=== PATIENT | female | born 1955 | race Caucasian/White ===

== ENCOUNTER 2018-10-28 14:18 | Outpatient (CLI) | payer MEDICARE | END 2018-10-28 23:59 | disposition home or self-care (01) | LOC: WOUND 14:18 | PROVIDERS: ATTEND Family Medicine | DX: E11.622 Type 2 diabetes mellitus with other skin ulcer (principal); L98.495 Non-pressure chronic ulcer of skin of other sites with muscle involvement without evidence of necrosis; L89.309 Pressure ulcer of unspecified buttock, unspecified stage; E11.40 Type 2 diabetes mellitus with diabetic neuropathy, unspecified; I10 Essential (primary) hypertension; E66.01 Morbid (severe) obesity due to excess calories; M19.90 Unspecified osteoarthritis, unspecified site; J44.9 Chronic obstructive pulmonary disease, unspecified; G47.33 Obstructive sleep apnea (adult) (pediatric); M81.0 Age-related osteoporosis without current pathological fracture; Z79.4 Long term (current) use of insulin | CPT/HCPCS: G0463 ==

== ENCOUNTER 2018-11-04 13:22 | Outpatient (CLI) | payer MEDICARE | END 2018-11-04 23:59 | disposition home or self-care (01) | LOC: WOUND 13:22 | PROVIDERS: ATTEND Family Medicine | DX: E11.622 Type 2 diabetes mellitus with other skin ulcer (principal); L98.495 Non-pressure chronic ulcer of skin of other sites with muscle involvement without evidence of necrosis; L89.309 Pressure ulcer of unspecified buttock, unspecified stage; E11.40 Type 2 diabetes mellitus with diabetic neuropathy, unspecified; I10 Essential (primary) hypertension; E66.01 Morbid (severe) obesity due to excess calories; M19.90 Unspecified osteoarthritis, unspecified site; J44.9 Chronic obstructive pulmonary disease, unspecified; G47.33 Obstructive sleep apnea (adult) (pediatric); M81.0 Age-related osteoporosis without current pathological fracture; Z79.4 Long term (current) use of insulin | CPT/HCPCS: G0463 ==

== ENCOUNTER 2019-01-25 12:39 | Inpatient (IN) | payer MEDICARE ==
[2019-01-23 14:53] LABS: BASOPHILS # (AUTO) 0.05 x10^3/uL (0-0.1); BASOPHILS % (AUTO) 1 % (0-1); EOSINOPHILS # (AUTO) 0.43 x10^3/uL (0-0.4); EOSINOPHILS % (AUTO) 4 % (1-7); LYMPHOCYTES # (AUTO) 1.41 x10^3/uL (1-3.4); LYMPHOCYTES % (AUTO) 14 % (22-44); MD NO; MEAN CORPUSCULAR HGB CONC 31.2 g/dL (32.4-35.8); MEAN CORPUSCULAR VOLUME 70.7 fL (80-100); MEAN PLATELET VOLUME 6.9 fL (7.4-10.4); MONOCYTES # (AUTO) 0.82 x10^3/uL (0.2-0.8); MONOCYTES % (AUTO) 8 % (2-9); NEUTROPHILS # (AUTO) 7.21 x10^3/uL (1.8-6.8); NEUTROPHILS % (AUTO) 73 % (42-75); PLATELET COUNT 337 x10^3/uL (130-400)
[2019-01-23 15:05] LABS: ALANINE AMINOTRANSFERASE 93 U/L (12-78); ALBUMIN 2.6 g/dL (3.4-5.0); ANION GAP 6 mmol/L (5-15); CALCIUM 9.4 mg/dL (8.5-10.1); CHLORIDE 110 mmol/L (98-107)
[2019-01-23 15:08] LABS: ALKALINE PHOSPHATASE 274 U/L (45-117); BILIRUBIN,TOTAL 0.3 mg/dL (0.2-1.0); TOTAL PROTEIN 8.3 g/dL (6.4-8.2)
[2019-01-23 16:27] LABS: CULTURE INDICATED? YES; MICROSCOPIC INDICATED
[~2019-01-25] VITALS: Ht 157.5 cm; Wt 100.0 kg
[~2019-01-25 12:39] MED LIST: EPINEPHRINE 1 MG/ML, 1ML ONE; GLYB5TAB3 PO; LIDOCAINE 1%, 20ML ONE; METF500T17 PO; Oxygen INH; [UNRECOGNIZED DRUG - REMARK]
[2019-01-25] MEDS ORDERED: METOPROLOL PO (13:16)
[2019-01-25] MEDS ORDERED: LACTATED RINGERS 1,000 ML IV SCH (13:25)
[2019-01-25] MEDS ORDERED: SITA100T PO (13:26)
[2019-01-25] MEDS ORDERED: ACIDOPHILUS PO (13:26)
[2019-01-25] MEDS ORDERED: TRAZ50TA66 PO (13:26)
[2019-01-25] MEDS ORDERED: GLIM4TAB4 PO (13:26)
[2019-01-25] MEDS ORDERED: DICL75TA3 PO (13:26)
[2019-01-25] MEDS ORDERED: LISI30TA4 PO (13:26)
[2019-01-25] MEDS ORDERED: HYDR25TA6 PO (13:26)
[2019-01-25] MEDS ORDERED: INSU100V13 SQ (13:26)
[2019-01-25] MEDS ORDERED: OXYB5TAB10 PO (13:26)
[2019-01-25] MEDS ORDERED: VITAMIN D3 PO (13:26)
[2019-01-25] MEDS ORDERED: CALCIUM PO (13:26)
[2019-01-25] MEDS ORDERED: FENTANYL PF 250 MCG/5ML ONE ×3 (13:27→16:06)
[2019-01-25] MEDS ORDERED: GABAPENTIN 300 MG CAPSULE PO ONE (13:30)
[2019-01-25] MEDS ORDERED: ACETAMINOPHEN 500 MG TABLET PO ONE (13:30)
[2019-01-25] MEDS ORDERED: MINERAL OIL 10 ML VIAL MC ONE (13:51)
[2019-01-25] MEDS ORDERED: HYDROmorphone 2 MG/ML, 1ML IVPush PRN (14:00)
[2019-01-25] MEDS ORDERED: OXYcodone 5 MG/5 ML ORAL.SOL UDC PO PRN (14:00)
[2019-01-25] MEDS ORDERED: DEXTROSE 50%, 50ML SYRINGE IVPush ONE (14:00)
[2019-01-25] MEDS ORDERED: hydrALAzine 20 MG/ML, 1ML IV PRN (14:00)
[2019-01-25] MEDS ORDERED: MORPHINE SULFATE 4 MG/ML, 1ML IVPush PRN (14:00)
[2019-01-25] MEDS ORDERED: HALOPERIDOL 5 MG/ML IV PRN (14:00)
[2019-01-25] MEDS ORDERED: MEPERIDINE/PF 25MG/ML,1ML IVPush PRN (14:00)
[2019-01-25] MEDS ORDERED: PROMETHAZINE 25 MG/ML, 1ML IV PRN (14:00)
[2019-01-25] MEDS ORDERED: LABETALOL 5MG/ML, 20ML IV PRN (14:00)
[2019-01-25] MEDS ORDERED: FENTANYL PF 100 MCG/2ML IV PRN (14:00)
[2019-01-25] MEDS ORDERED: BUPIVACAINE/PF 0.25% ONE (14:23)
[2019-01-25] MEDS ORDERED: PHENYLEPHRINE 10 MG/ML ONE (14:39)
[2019-01-25] MEDS ORDERED: GLYCOPYRROLATE 0.2MG/1ML, 5ML ONE (14:50)
[2019-01-25] MEDS ORDERED: DEXAMETHASONE 4 MG/ML, 1ML ONE (14:50)
[2019-01-25] MEDS ORDERED: CEFAZOLIN 1,000 MG ONE ×3 (14:50→17:35)
[2019-01-25] MEDS ORDERED: ONDANSETRON 2MG/ML, 2ML ONE (14:50)
[2019-01-25] MEDS ORDERED: ROCURONIUM 10MG/ML,5ML ONE (14:50)
[2019-01-25] MEDS ORDERED: PROPOFOL 10 MG/ML, 20ML ONE (14:50)
[2019-01-25] MEDS ORDERED: NEOSTIGMINE 1 MG/ML, 10ML ONE (14:50)
[2019-01-25] MEDS ORDERED: BACITRACIN 50,000 UNIT ONE (16:35)
[2019-01-25] MEDS ORDERED: OXYcodone 5 MG/5 ML ORAL.SOL UDC ONE (19:39)
[2019-01-25] MEDS ORDERED: FENTANYL PF 100 MCG/2ML ONE (19:39)
[2019-01-25] MEDS ORDERED: BISACODYL 10 MG SUPP PR PRN (20:30)
[2019-01-25] MEDS ORDERED: ONDANSETRON 2MG/ML, 2ML IVPush PRN (20:30)
[2019-01-25] MEDS ORDERED: hydrALAzine 20 MG/ML, 1ML IVPush PRN (20:30)
[2019-01-25] MEDS ORDERED: morphine SULFATE 10 MG/ML, 1ML IVPush PRN (20:30)
[2019-01-25] MEDS ORDERED: DOCUSATE 100 MG CAPSULE PO PRN (20:30)
[2019-01-25] MEDS ORDERED: ONDANSETRON ODT 4 MG PO PRN (20:30)
[2019-01-25] MEDS ORDERED: PROMETHAZINE 25 MG/ML, 1ML IM PRN (20:30)
[2019-01-25] MEDS ORDERED: POLYETHYLENE GLYCOL 17 GM PACKET PO PRN (20:30)
[2019-01-25] MEDS ORDERED: INSULIN DETEMIR 25 UNIT SQ SCH (21:00)
[2019-01-25] MEDS ORDERED: metFORMIN 500 MG TABLET PO SCH (21:00)
[2019-01-25] MEDS: TRAZODONE 50MG TABLET PO SCH (21:00)
[2019-01-25] MEDS: METOPROLOL TARTRATE 50 MG TABLET PO SCH (21:00)
[2019-01-25] MEDS: INSULIN GLARGINE 100 UNITS/ML, PEN SQ-INSULIN SCH (21:00)
[2019-01-25] MEDS: DICLOFENAC SODIUM 75 MG TABLET.DR PO SCH (21:00)
[2019-01-25 21:43] LABS: BASOPHILS # (AUTO) 0.01 x10^3/uL (0-0.1); BASOPHILS % (AUTO) 0 % (0-1); EOSINOPHILS # (AUTO) 0.11 x10^3/uL (0-0.4); EOSINOPHILS % (AUTO) 1 % (1-7); LYMPHOCYTES # (AUTO) 0.68 x10^3/uL (1-3.4); LYMPHOCYTES % (AUTO) 4 % (22-44); MD NO; MEAN CORPUSCULAR HGB CONC 30.7 g/dL (32.4-35.8); MEAN CORPUSCULAR VOLUME 71.6 fL (80-100); MEAN PLATELET VOLUME 7.8 fL (7.4-10.4); MONOCYTES % (AUTO) 1 % (2-9); NEUTROPHILS # (AUTO) 16.76 x10^3/uL (1.8-6.8); NEUTROPHILS % (AUTO) 94 % (42-75); PLATELET COUNT 347 x10^3/uL (130-400); RED BLOOD COUNT 3.32 x10^6/uL (3.82-5.3); RED CELL DISTRIBUTION WIDTH 19.3 % (9.6-15.2)
[2019-01-25 22:05] LABS: HEMOGLOBIN A1C 5.4 % (4.2-6.3)
[2019-01-25 23:19] LABS: ALBUMIN 1.9 g/dL (3.4-5.0); ANION GAP 7 mmol/L (5-15); CALCIUM 8.2 mg/dL (8.5-10.1); CHLORIDE 109 mmol/L (98-107)
[2019-01-25 23:29] LABS: % IRON SATURATION 8 % (20-55); ALANINE AMINOTRANSFERASE 45 U/L (12-78); ALKALINE PHOSPHATASE 172 U/L (45-117); BILIRUBIN,TOTAL 0.4 mg/dL (0.2-1.0); CREATININE 1.97 mg/dL (0.55-1.02); FREE T4 (FREE THYROXINE) 0.93 ng/dL (0.76-1.46); IRON LEVEL 19 mcg/dL (50-170); TOTAL IRON BINDING CAPACITY 224 mcg/dL (250-450); TOTAL PROTEIN 6.3 g/dL (6.4-8.2); TRANSFERRIN 159 mg/dL (200-360)
[2019-01-25] MEDS: OXYBUTYNIN CHLORIDE 5 MG TABLET PO SCH (23:35)
[2019-01-25] MEDS: OXYcodone IR 5MG TABLET PO PRN (23:36)
[2019-01-26] VITALS (13 sets, daily range): BP systolic 81–125; BP diastolic 45–76
[2019-01-26] MEDS ORDERED: SODIUM POLYSTYRENE SULFONATE ORAL SUSP PO ONE ×2 (00:30→01:00)
[2019-01-26] MEDS ORDERED: INSULIN LISPRO 100 UNITS/ML, PEN SQ-INSULIN ONE (01:00)
[2019-01-26] MEDS ORDERED: DEXTROSE 50%, 50ML SYRINGE IVPush ONE (01:00)
[2019-01-26] MEDS: SODIUM CHLORIDE 0.9% 1,000 ML IV SCH ×2 (01:10→20:58)
[2019-01-26 02:40] LABS: MEAN CORPUSCULAR HEMOGLOBIN 21.5 pg (27.0-34.8); MEAN CORPUSCULAR HGB CONC 30.5 g/dL (32.4-35.8); MEAN CORPUSCULAR VOLUME 70.7 fL (80-100); MEAN PLATELET VOLUME 7.4 fL (7.4-10.4); PLATELET COUNT 274 x10^3/uL (130-400); RED BLOOD COUNT 3.03 x10^6/uL (3.82-5.3)
[2019-01-26 02:45] LABS: ALBUMIN 1.9 g/dL (3.4-5.0); ANION GAP 5 mmol/L (5-15); CALCIUM 8.1 mg/dL (8.5-10.1); CHLORIDE 108 mmol/L (98-107)
[2019-01-26 02:48] LABS: ALANINE AMINOTRANSFERASE 43 U/L (12-78); ALKALINE PHOSPHATASE 168 U/L (45-117); BILIRUBIN,TOTAL 0.3 mg/dL (0.2-1.0); CHOL/HDL RATIO 3.8; CHOLESTEROL, TOTAL 109 mg/dL (140-239); CREATININE 2.11 mg/dL (0.55-1.02); HDL CHOL % 27 % (28-40); HDL CHOLESTEROL (DIRECT) 29 mg/dL (40-60); LDL CHOLESTEROL,CALCULATED 66 mg/dL (54-169); LDL/HDL RATIO 2.3 (0.5-3.0); TOTAL PROTEIN 6.3 g/dL (6.4-8.2); TRIGLYCERIDES 72 mg/dL (50-200); VLDL CHOLESTEROL 14 mg/dL (0-25)
[2019-01-26 03:08] LABS: BASOPHILS % (AUTO) 0 % (0-1); EOSINOPHILS % (AUTO) 0 % (1-7); LYMPHOCYTES # (AUTO) 0.68 x10^3/uL (1-3.4); LYMPHOCYTES % (AUTO) 4 % (22-44); MD SCAN; MONOCYTES % (AUTO) 3 % (2-9); NEUTROPHILS # (AUTO) 14.84 x10^3/uL (1.8-6.8); NEUTROPHILS % (AUTO) 93 % (42-75)
[2019-01-26] MEDS ORDERED: LISINOPRIL 10 MG TABLET PO SCH (09:00)
[2019-01-26] MEDS: CHOLECALCIFEROL 1,000 UNIT TABLET PO SCH (09:27)
[2019-01-26] MEDS: CALCIUM CARBONATE 500 MG TAB.CHEW PO SCH (09:28)
[2019-01-26] MEDS: GLIMEPIRIDE 4 MG TABLET PO SCH (09:28)
[2019-01-26] MEDS: HYDROCHLOROTHIAZIDE 25 MG TABLET PO SCH (09:28)
[2019-01-26] MEDS: METOPROLOL TARTRATE 50 MG TABLET PO SCH ×2 (09:28→20:58)
[2019-01-26] MEDS: DICLOFENAC SODIUM 75 MG TABLET.DR PO SCH ×2 (09:28→20:57)
[2019-01-26] MEDS: LINAGLIPTIN 5 MG TAB PO SCH (09:28)
[2019-01-26] MEDS: OXYBUTYNIN CHLORIDE 5 MG TABLET PO SCH ×2 (09:29→20:58)
[2019-01-26] MEDS: OXYcodone IR 5MG TABLET PO PRN (09:37)
[2019-01-26] MEDS: INSULIN LISPRO 100 UNITS/ML, PEN SQ-INSULIN SCH ×4 (09:57→21:15)
[2019-01-26] MEDS ORDERED: AMPICILLIN/SULBACTAM 3 GM in SODIUM CHLORIDE 0.9% 100 ML IV SCH (10:00)
[2019-01-26] MEDS ORDERED: VANCOMYCIN PER PHARMACY MC PRN (10:00)
[2019-01-26] MEDS ORDERED: PHARMACY INSTRUCTION MC SCH (10:00)
[2019-01-26] MEDS ORDERED: PHARMACOKINETIC MONITORING MC PRN (10:30)
[2019-01-26] MEDS ORDERED: VANCOMYCIN 2,000 MG in SODIUM CHLORIDE 0.9% 500 ML IV ONE (11:00)
[2019-01-26] MEDS: AMPICILLIN/SULBACTAM 3 GM in SODIUM CHLORIDE 0.9% 100 ML IV SCH (13:57)
[2019-01-26] MEDS: TRAZODONE 50MG TABLET PO SCH (20:58)
[2019-01-26] MEDS: INSULIN GLARGINE 100 UNITS/ML, PEN SQ-INSULIN SCH (21:15)
[2019-01-27 00:27] VITALS: BP 99/60
[2019-01-27] MEDS: AMPICILLIN/SULBACTAM 3 GM in SODIUM CHLORIDE 0.9% 100 ML IV SCH ×2 (01:40→14:32)
[2019-01-27 01:42] VITALS: BP 98/57
[2019-01-27 01:43] VITALS: BP 98/57
[2019-01-27 05:38] LABS: ALBUMIN 1.9 g/dL (3.4-5.0); ANION GAP 5 mmol/L (5-15); CALCIUM 8.1 mg/dL (8.5-10.1); CHLORIDE 110 mmol/L (98-107)
[2019-01-27 05:40] LABS: MEAN CORPUSCULAR HEMOGLOBIN 23.9 pg (27.0-34.8); MEAN CORPUSCULAR HGB CONC 31.8 g/dL (32.4-35.8); MEAN CORPUSCULAR VOLUME 75.2 fL (80-100); MEAN PLATELET VOLUME 7.8 fL (7.4-10.4); PLATELET COUNT 207 x10^3/uL (130-400); RED BLOOD COUNT 3.11 x10^6/uL (3.82-5.3); RED CELL DISTRIBUTION WIDTH 21.5 % (9.6-15.2)
[2019-01-27 05:43] LABS: ALANINE AMINOTRANSFERASE 30 U/L (12-78); ALKALINE PHOSPHATASE 136 U/L (45-117); BILIRUBIN,TOTAL 0.5 mg/dL (0.2-1.0)
[2019-01-27 06:23] LABS: BASOPHILS # (AUTO) 0.01 x10^3/uL (0-0.1); BASOPHILS % (AUTO) 0 % (0-1); EOSINOPHILS # (AUTO) 0.13 x10^3/uL (0-0.4); EOSINOPHILS % (AUTO) 1 % (1-7); LYMPHOCYTES # (AUTO) 1.06 x10^3/uL (1-3.4); LYMPHOCYTES % (AUTO) 7 % (22-44); MD SCAN; MONOCYTES # (AUTO) 0.72 x10^3/uL (0.2-0.8); MONOCYTES % (AUTO) 5 % (2-9); NEUTROPHILS # (AUTO) 13.78 x10^3/uL (1.8-6.8); NEUTROPHILS % (AUTO) 88 % (42-75)
[2019-01-27 07:23] VITALS: BP 114/66
[2019-01-27] MEDS: INSULIN LISPRO 100 UNITS/ML, PEN SQ-INSULIN SCH ×2 (08:05→12:39)
[2019-01-27] MEDS: LINAGLIPTIN 5 MG TAB PO SCH (08:06)
[2019-01-27] MEDS: GLIMEPIRIDE 4 MG TABLET PO SCH (08:06)
[2019-01-27] MEDS: CHOLECALCIFEROL 1,000 UNIT TABLET PO SCH (08:06)
[2019-01-27] MEDS: HYDROCHLOROTHIAZIDE 25 MG TABLET PO SCH (08:06)
[2019-01-27] MEDS: CALCIUM CARBONATE 500 MG TAB.CHEW PO SCH (08:07)
[2019-01-27] MEDS: OXYBUTYNIN CHLORIDE 5 MG TABLET PO SCH (08:07)
[2019-01-27] MEDS ORDERED: METOPROLOL TARTRATE 25 MG TABLET PO SCH (09:00)
[2019-01-27] MEDS: SODIUM CHLORIDE 0.9% 1,000 ML IV SCH (11:27)
[2019-01-27] MEDS ORDERED: LIDODERM 5% PATCH TD SCH (12:00)
[2019-01-27 12:46] VITALS: BP 134/68
[2019-01-27] MEDS ORDERED: METO25TA35 PO (13:37)
[2019-01-27] MEDS ORDERED: ONDA4TAB13 PO (13:37)
[2019-01-27] MEDS ORDERED: POLY17PO5 PO (13:37)
[2019-01-27] MEDS ORDERED: GLIM4TAB PO (13:37)
[2019-01-27] MEDS ORDERED: CALC200T24 PO (13:37)
[2019-01-27] MEDS ORDERED: ASCO500T6 PO (13:37)
[2019-01-27] MEDS ORDERED: OXYC5TAB3 PO (13:37)
[2019-01-27] MEDS ORDERED: LINA5TAB PO (13:37)
[2019-01-27] MEDS ORDERED: INSU100I11 SQ-INSULIN (13:37)
[2019-01-27] MEDS ORDERED: CHOL10003 PO (13:37)
[2019-01-27] MEDS ORDERED: OXYB5TAB10 PO (13:37)
[2019-01-27] MEDS ORDERED: LIDO700A20 TD (13:37)
[2019-01-27] MEDS ORDERED: INSU100I13 SQ-INSULIN (13:37)
[2019-01-27] MEDS ORDERED: DOCU100C33 PO (13:37)
[2019-01-27] MEDS ORDERED: FERR-51 PO (13:37)
[2019-01-27] MEDS: OXYcodone IR 5MG TABLET PO PRN (14:32)
[2019-01-27] MEDS ORDERED: FERROUS SULFATE 325 MG TABLET PO SCH (17:00)
[2019-01-27] MEDS ORDERED: ASCORBIC ACID 500 MG TABLET PO SCH (17:00)
[2019-01-27] MEDS ORDERED: VANCOMYCIN 1,800 MG in SODIUM CHLORIDE 0.9% 250 ML IV SCH (23:00)
== END 2019-01-27 16:16 | DRG 576 ==
LOC: OUT 12:39 → ORIP 20:39 → 3N 22:47 → 4NE 01-26 16:35
PROVIDERS: ADMIT Internal Medicine; ATTEND Hospitalist
PROC: 0HB7XZZ Excision of Abdomen Skin, External Approach (ICD-10-PCS; 2019-01-25)
PROC: 0HR7X73 Replacement of Abdomen Skin with Autologous Tissue Substitute, Full Thickness, External Approach (ICD-10-PCS; principal; 2019-01-25 14:30)
PROC: 0HBAXZZ Excision of Inguinal Skin, External Approach (ICD-10-PCS; 2019-01-25 14:30)
PROC: 30233N1 Transfusion of Nonautologous Red Blood Cells into Peripheral Vein, Percutaneous Approach (ICD-10-PCS; 2019-01-26)
DX: L73.2 Hidradenitis suppurativa (principal); E43 Unspecified severe protein-calorie malnutrition; N17.9 Acute kidney failure, unspecified; Z68.41 Body mass index [BMI] 40.0-44.9, adult; M79.3 Panniculitis, unspecified; D50.9 Iron deficiency anemia, unspecified; D72.829 Elevated white blood cell count, unspecified; E11.9 Type 2 diabetes mellitus without complications; E66.01 Morbid (severe) obesity due to excess calories; G47.33 Obstructive sleep apnea (adult) (pediatric); I10 Essential (primary) hypertension; K75.81 Nonalcoholic steatohepatitis (NASH); G89.29 Other chronic pain; M54.9 Dorsalgia, unspecified; Z79.4 Long term (current) use of insulin; Z87.891 Personal history of nicotine dependence; Z90.710 Acquired absence of both cervix and uterus
CPT/HCPCS: 36415; 80053; 80061; 81001; 82728; 82962; 83036; 83540; 83550; 83735; 84100; 84439; 84443; 84466; 85025; 86850; 86900; 86923; 87086; 88302; 93005; C1729; G0378; J0171; J0295; J0690; J1100; J2405; J2704; J2710; J3010; J3370; J3490; J1815; J2370; J7030; J7040; J7120; P9016

== ENCOUNTER 2019-03-16 15:41 | Inpatient (IN) | payer MEDICARE ==
[~2019-03-16] VITALS: Ht 160 cm; Wt 92.2 kg
[~2019-03-16 15:41] MED LIST changes: +ACIDOPHILUS PO; +ASCO500T6 PO; +CALC200T24 PO; +CALCIUM PO; +CHOL10003 PO; +DICL75TA3 PO; +DOCU100C33 PO; -EPINEPHRINE 1 MG/ML, 1ML ONE; +FERR-51 PO; +GLIM4TAB PO; +GLIM4TAB4 PO; +HYDR25TA6 PO; +INSU100I11 SQ-INSULIN; +INSU100I13 SQ-INSULIN; +INSU100V13 SQ; +LIDO700A20 TD; -LIDOCAINE 1%, 20ML ONE; +LINA5TAB PO; +LISI30TA4 PO; +METO25TA35 PO; +METOPROLOL PO; +ONDA4TAB13 PO; +OXYB5TAB10 PO; +OXYC5TAB3 PO; +POLY17PO5 PO; +SITA100T PO; +TRAZ50TA66 PO; +VITAMIN D3 PO
--- NOTE | 2019-03-16 15:45 | NUR ---
PATIENT BROUGHT IN BY SALTY FROM [facility] FOR POSSIBLE INFECTOIN OF SKIN GRAFT SITE. THE PATIENT ARRIVES ALERT, ORIENTED, ARM AND DRY.
[2019-03-16] MEDS ORDERED: SODIUM CHLORIDE FLUSH 10ML SYR IVF ONE (16:00)
[2019-03-16] MEDS ORDERED: VANCOMYCIN PER PHARMACY MC ONE (16:00)
[2019-03-16] MEDS ORDERED: PIPERACILLIN/TAZO/PMX 3.375GM 50 ML IVPB ONE (16:00)
[2019-03-16] MEDS ORDERED: SODIUM CHLORIDE 0.9% 1,000ML IVBOLUS ONE (16:00)
[2019-03-16] MEDS ORDERED: LORazepam 2 MG/ML, 1ML IVPush ONE (16:30)
[2019-03-16] MEDS ORDERED: VANCOMYCIN 1,500 MG in SODIUM CHLORIDE 0.9% 250 ML IV ONE (16:30)
[2019-03-16 16:31] LABS: BASOPHILS # (AUTO) 0.03 x10^3/uL (0-0.1); BASOPHILS % (AUTO) 0 % (0-1); EOSINOPHILS # (AUTO) 0.31 x10^3/uL (0-0.4); EOSINOPHILS % (AUTO) 3 % (1-7); LYMPHOCYTES # (AUTO) 1.43 x10^3/uL (1-3.4); LYMPHOCYTES % (AUTO) 12 % (22-44); MD NO; MEAN CORPUSCULAR HGB CONC 30.8 g/dL (32.4-35.8); MONOCYTES # (AUTO) 0.73 x10^3/uL (0.2-0.8); MONOCYTES % (AUTO) 6 % (2-9); NEUTROPHILS # (AUTO) 9.02 x10^3/uL (1.8-6.8); NEUTROPHILS % (AUTO) 78 % (42-75); PLATELET COUNT 225 x10^3/uL (130-400); RED BLOOD COUNT 3.98 x10^6/uL (3.82-5.3); RED CELL DISTRIBUTION WIDTH 21.7 % (9.6-15.2)
[2019-03-16 16:40] LABS: ALANINE AMINOTRANSFERASE 41 U/L (12-78); ALBUMIN 2.5 g/dL (3.4-5.0); ANION GAP 4 mmol/L (5-15); CALCIUM 9.4 mg/dL (8.5-10.1); CHLORIDE 102 mmol/L (98-107); CREATININE 0.95 mg/dL (0.55-1.02)
[2019-03-16 16:43] LABS: ALKALINE PHOSPHATASE 149 U/L (45-117); BILIRUBIN,TOTAL 0.3 mg/dL (0.2-1.0); TOTAL PROTEIN 7.8 g/dL (6.4-8.2)
[2019-03-16] MEDS ORDERED: PIPERACILLIN/TAZO/PMX 3.375GM 50 ML ONE (16:50)
--- NOTE | 2019-03-16 16:50 | NUR ---
PT TO IMAGING
[2019-03-16] MEDS ORDERED: LORazepam 2 MG/ML, 1ML ONE (16:51)
--- NOTE | 2019-03-16 17:07 | NUR ---
REPORT CALLED TO BHAKTI WOODS. RECIEVEING RN AWARE OF NEEDED ABX, ROCEPHIN ADMINISTERED ONLY. Addendum: 03/16/19 at 1708 by [email or web address] DELETE NOTE- WRONG PT CHART
[2019-03-16] MEDS ORDERED: OMNIPAQUE 350 MG/ML, 100ML BOTTLE ONE (17:24)
--- NOTE | 2019-03-16 17:33 | NUR ---
PT BACK FROM IMAGING, ABX INFUSING
[2019-03-16 17:50] LABS: CULTURE INDICATED? YES; MICROSCOPIC INDICATED
[2019-03-16] MEDS ORDERED: DIPHENHYDRAMINE 50 MG/ML, 1ML IVPush ONE (18:30)
[2019-03-16] MEDS ORDERED: SODIUM CHLORIDE 0.9% 1,000 ML IV SCH (18:55)
[2019-03-16] MEDS ORDERED: morphine SULFATE 10 MG/ML, 1ML IVPush PRN (19:00)
[2019-03-16] MEDS ORDERED: hydrALAzine 20 MG/ML, 1ML IVPush PRN (19:00)
[2019-03-16] MEDS ORDERED: VANCOMYCIN PER PHARMACY MC PRN (19:00)
[2019-03-16] MEDS ORDERED: ONDANSETRON ODT 4 MG PO PRN (19:00)
[2019-03-16] MEDS ORDERED: ONDANSETRON 2MG/ML, 2ML IVPush PRN (19:00)
[2019-03-16] MEDS ORDERED: LABETALOL 5MG/ML, 20ML IVPush PRN (19:00)
[2019-03-16] MEDS: HEPARIN 5,000 UNITS/ML, 1ML SQ SCH ×2 (19:00→21:30)
--- NOTE | 2019-03-16 19:02 | NUR ---
REPORT CALLED TO JAYCOB WOODS
[2019-03-16 19:50] LABS: HCT (SEDRATE) 31.5 % (34.6-47.8)
[2019-03-16 19:54] VITALS: BP 121/75
[2019-03-16] MEDS ORDERED: PHARMACOKINETIC CONSULTATION MC ONE (20:30)
[2019-03-16] MEDS ORDERED: PHARMACOKINETIC MONITORING MC PRN (20:30)
[2019-03-16] MEDS ORDERED: VANCOMYCIN 1,500 MG in SODIUM CHLORIDE 0.9% 250 ML IV SCH (21:00)
[2019-03-16] MEDS ORDERED: INSULIN LISPRO 100 UNITS/ML, PEN SQ-INSULIN SCH (21:00)
[2019-03-16] MEDS: CLINDAMYCIN PMX 900MG/50ML 50 ML IV SCH (21:30)
[2019-03-16] MEDS ORDERED: SODIUM CHLORIDE 0.9% 500 ML IV SCH (21:30)
[2019-03-16] MEDS: OXYBUTYNIN CHLORIDE 5 MG TABLET PO SCH (21:30)
[2019-03-16] MEDS: METOPROLOL TARTRATE 25 MG TABLET PO SCH (21:33)
[2019-03-16] MEDS: TRAZODONE 50MG TABLET PO PRN (22:21)
[2019-03-17 00:06] VITALS: BP 114/55
[2019-03-17] MEDS: CLINDAMYCIN PMX 900MG/50ML 50 ML IV SCH ×3 (01:50→17:58)
[2019-03-17] MEDS: HEPARIN 5,000 UNITS/ML, 1ML SQ SCH ×3 (02:20→17:58)
[2019-03-17] MEDS: PIPERACILLIN/TAZO/PMX 4.5GM 100 ML IV SCH ×4 (04:25→22:40)
[2019-03-17] MEDS ORDERED: INSULIN LISPRO 100 UNITS/ML, PEN SQ-INSULIN SCH (06:00)
[2019-03-17 06:11] LABS: BASOPHILS # (AUTO) 0.04 x10^3/uL (0-0.1); BASOPHILS % (AUTO) 1 % (0-1); EOSINOPHILS # (AUTO) 0.35 x10^3/uL (0-0.4); EOSINOPHILS % (AUTO) 5 % (1-7); LYMPHOCYTES # (AUTO) 1.16 x10^3/uL (1-3.4); LYMPHOCYTES % (AUTO) 18 % (22-44); MD NO; MEAN CORPUSCULAR HGB CONC 30.5 g/dL (32.4-35.8); MEAN CORPUSCULAR VOLUME 78.6 fL (80-100); MEAN PLATELET VOLUME 7.9 fL (7.4-10.4); MONOCYTES # (AUTO) 0.58 x10^3/uL (0.2-0.8); MONOCYTES % (AUTO) 9 % (2-9); NEUTROPHILS % (AUTO) 68 % (42-75); PLATELET COUNT 164 x10^3/uL (130-400); RED BLOOD COUNT 3.49 x10^6/uL (3.82-5.3); RED CELL DISTRIBUTION WIDTH 21.3 % (9.6-15.2)
[2019-03-17 06:20] LABS: ALBUMIN 2.1 g/dL (3.4-5.0); ANION GAP 4 mmol/L (5-15); CALCIUM 8.5 mg/dL (8.5-10.1); CHLORIDE 108 mmol/L (98-107)
[2019-03-17 06:24] LABS: ALANINE AMINOTRANSFERASE 38 U/L (12-78); ALKALINE PHOSPHATASE 124 U/L (45-117); BILIRUBIN,TOTAL 0.4 mg/dL (0.2-1.0); CREATININE 0.76 mg/dL (0.55-1.02); TOTAL PROTEIN 6.5 g/dL (6.4-8.2)
[2019-03-17 07:34] VITALS: BP 139/77
[2019-03-17] MEDS: METOPROLOL TARTRATE 25 MG TABLET PO SCH ×2 (07:59→20:56)
[2019-03-17] MEDS: OXYBUTYNIN CHLORIDE 5 MG TABLET PO SCH ×2 (07:59→20:56)
[2019-03-17] MEDS: FERROUS SULFATE 325 MG TABLET PO SCH ×2 (07:59→16:45)
[2019-03-17] MEDS: DIPHENHYDRAMINE 25 MG CAPSULE PO PRN ×3 (09:46→23:29)
[2019-03-17] MEDS ORDERED: POLYETHYLENE GLYCOL 17 GM PACKET PO PRN (11:30)
[2019-03-17] MEDS ORDERED: SENNA/DOCUSATE TABLET PO PRN (11:30)
[2019-03-17] MEDS: VANCOMYCIN 1,500 MG in SODIUM CHLORIDE 0.9% 250 ML IV SCH (12:05)
[2019-03-17 14:35] VITALS: BP 143/69
[2019-03-17 15:56] LABS: RAPID INFLUENZA A Negative (Negative); RAPID INFLUENZA B Negative (Negative)
[2019-03-17] MEDS: ACETAMINOPHEN 325 MG TABLET PO PRN (17:58)
[2019-03-17 18:42] VITALS: BP 118/72
[2019-03-17] MEDS: TRAZODONE 50MG TABLET PO PRN (20:56)
[2019-03-18 00:17] VITALS: BP 107/56
[2019-03-18] MEDS: CLINDAMYCIN PMX 900MG/50ML 50 ML IV SCH ×2 (01:49→09:56)
[2019-03-18] MEDS: HEPARIN 5,000 UNITS/ML, 1ML SQ SCH ×3 (02:34→19:00)
[2019-03-18] MEDS: PIPERACILLIN/TAZO/PMX 4.5GM 100 ML IV SCH ×3 (04:16→17:20)
[2019-03-18] MEDS: VANCOMYCIN 1,500 MG in SODIUM CHLORIDE 0.9% 250 ML IV SCH ×2 (05:25→23:46)
[2019-03-18 06:51] VITALS: BP 146/79
[2019-03-18] MEDS: FERROUS SULFATE 325 MG TABLET PO SCH ×2 (08:06→17:20)
[2019-03-18] MEDS: OXYBUTYNIN CHLORIDE 5 MG TABLET PO SCH ×2 (08:06→20:05)
[2019-03-18] MEDS: METOPROLOL TARTRATE 25 MG TABLET PO SCH ×2 (08:06→20:06)
[2019-03-18] MEDS: ACETAMINOPHEN 325 MG TABLET PO PRN ×3 (08:15→18:17)
[2019-03-18] MEDS: DIPHENHYDRAMINE 25 MG CAPSULE PO PRN (08:51)
[2019-03-18 11:45] VITALS: BP 146/71
[2019-03-18 14:00] VITALS: BP 130/75
[2019-03-18 18:35] VITALS: BP 144/77
[2019-03-18] MEDS: TRAZODONE 50MG TABLET PO PRN (20:04)
[2019-03-19 00:25] VITALS: BP 129/70
[2019-03-19] MEDS: PIPERACILLIN/TAZO/PMX 4.5GM 100 ML IV SCH ×4 (01:52→19:46)
[2019-03-19] MEDS: HEPARIN 5,000 UNITS/ML, 1ML SQ SCH ×3 (03:00→19:00)
[2019-03-19 05:50] LABS: BASOPHILS # (AUTO) 0.04 x10^3/uL (0-0.1); BASOPHILS % (AUTO) 1 % (0-1); EOSINOPHILS # (AUTO) 0.55 x10^3/uL (0-0.4); EOSINOPHILS % (AUTO) 10 % (1-7); LYMPHOCYTES # (AUTO) 1.23 x10^3/uL (1-3.4); LYMPHOCYTES % (AUTO) 23 % (22-44); MD NO; MEAN CORPUSCULAR HEMOGLOBIN 23.8 pg (27.0-34.8); MEAN CORPUSCULAR HGB CONC 30.1 g/dL (32.4-35.8); MEAN PLATELET VOLUME 8.2 fL (7.4-10.4); MONOCYTES # (AUTO) 0.51 x10^3/uL (0.2-0.8); MONOCYTES % (AUTO) 10 % (2-9); NEUTROPHILS # (AUTO) 3.01 x10^3/uL (1.8-6.8); NEUTROPHILS % (AUTO) 56 % (42-75); PLATELET COUNT 183 x10^3/uL (130-400); RED BLOOD COUNT 3.92 x10^6/uL (3.82-5.3)
[2019-03-19 06:11] LABS: ALBUMIN 2.2 g/dL (3.4-5.0); ANION GAP 4 mmol/L (5-15); CALCIUM 8.8 mg/dL (8.5-10.1); CHLORIDE 108 mmol/L (98-107)
[2019-03-19 06:14] LABS: ALANINE AMINOTRANSFERASE 42 U/L (12-78); ALKALINE PHOSPHATASE 139 U/L (45-117); BILIRUBIN,TOTAL 0.3 mg/dL (0.2-1.0); CREATININE 0.98 mg/dL (0.55-1.02); TOTAL PROTEIN 6.9 g/dL (6.4-8.2)
[2019-03-19 07:08] VITALS: BP 159/76
[2019-03-19] MEDS: OXYBUTYNIN CHLORIDE 5 MG TABLET PO SCH ×2 (07:54→22:04)
[2019-03-19] MEDS: METOPROLOL TARTRATE 25 MG TABLET PO SCH ×2 (07:54→22:05)
[2019-03-19] MEDS: FERROUS SULFATE 325 MG TABLET PO SCH ×2 (07:54→17:32)
[2019-03-19] MEDS: DIPHENHYDRAMINE 25 MG CAPSULE PO PRN (09:22)
[2019-03-19] MEDS: ACETAMINOPHEN 325 MG TABLET PO PRN (11:16)
[2019-03-19 12:25] VITALS: BP 153/77
[2019-03-19] MEDS: VANCOMYCIN 1,500 MG in SODIUM CHLORIDE 0.9% 250 ML IV SCH (17:32)
[2019-03-19 18:33] VITALS: BP 153/75
[2019-03-19 22:02] VITALS: BP 156/77
[2019-03-19] MEDS: TRAZODONE 50MG TABLET PO PRN (22:04)
[2019-03-20 00:40] VITALS: BP 148/57
[2019-03-20] MEDS: PIPERACILLIN/TAZO/PMX 4.5GM 100 ML IV SCH ×4 (01:44→19:40)
[2019-03-20] MEDS: HEPARIN 5,000 UNITS/ML, 1ML SQ SCH ×3 (03:00→18:30)
[2019-03-20 06:12] LABS: ANION GAP 5 mmol/L (5-15); CALCIUM 8.5 mg/dL (8.5-10.1); CHLORIDE 108 mmol/L (98-107)
[2019-03-20 06:13] LABS: CREATININE 0.84 mg/dL (0.55-1.02)
[2019-03-20 06:14] LABS: BASOPHILS # (AUTO) 0.03 x10^3/uL (0-0.1); BASOPHILS % (AUTO) 1 % (0-1); EOSINOPHILS # (AUTO) 0.39 x10^3/uL (0-0.4); EOSINOPHILS % (AUTO) 9 % (1-7); LYMPHOCYTES # (AUTO) 1.17 x10^3/uL (1-3.4); LYMPHOCYTES % (AUTO) 27 % (22-44); MD NO; MEAN CORPUSCULAR HEMOGLOBIN 23.2 pg (27.0-34.8); MEAN CORPUSCULAR HGB CONC 30.3 g/dL (32.4-35.8); MEAN CORPUSCULAR VOLUME 76.7 fL (80-100); MEAN PLATELET VOLUME 8.3 fL (7.4-10.4); MONOCYTES # (AUTO) 0.36 x10^3/uL (0.2-0.8); MONOCYTES % (AUTO) 8 % (2-9); NEUTROPHILS # (AUTO) 2.33 x10^3/uL (1.8-6.8); NEUTROPHILS % (AUTO) 54 % (42-75); PLATELET COUNT 187 x10^3/uL (130-400); RED CELL DISTRIBUTION WIDTH 20.3 % (9.6-15.2)
[2019-03-20 07:10] VITALS: BP 145/74
[2019-03-20] MEDS: OXYBUTYNIN CHLORIDE 5 MG TABLET PO SCH ×2 (07:43→20:59)
[2019-03-20] MEDS: METOPROLOL TARTRATE 25 MG TABLET PO SCH ×2 (07:43→20:59)
[2019-03-20] MEDS: FERROUS SULFATE 325 MG TABLET PO SCH ×2 (07:43→17:57)
[2019-03-20] MEDS: VANCOMYCIN 1,500 MG in SODIUM CHLORIDE 0.9% 250 ML IV SCH (11:25)
[2019-03-20] MEDS: OXYcodone/APAP 5/325MG TABLET PO PRN ×2 (11:26→17:58)
[2019-03-20 12:25] VITALS: BP 148/76
[2019-03-20 19:09] VITALS: BP 147/80
[2019-03-20 20:56] VITALS: BP 133/71
[2019-03-20] MEDS: TRAZODONE 50MG TABLET PO PRN (20:59)
[2019-03-21] MEDS: DIPHENHYDRAMINE 25 MG CAPSULE PO PRN ×2 (00:53→09:41)
[2019-03-21 01:26] VITALS: BP 131/55
[2019-03-21] MEDS: PIPERACILLIN/TAZO/PMX 4.5GM 100 ML IV SCH ×3 (01:28→13:54)
[2019-03-21] MEDS: HEPARIN 5,000 UNITS/ML, 1ML SQ SCH ×2 (01:28→11:00)
[2019-03-21 07:23] VITALS: BP 154/77
[2019-03-21] MEDS: OXYBUTYNIN CHLORIDE 5 MG TABLET PO SCH (07:41)
[2019-03-21] MEDS: METOPROLOL TARTRATE 25 MG TABLET PO SCH (07:41)
[2019-03-21] MEDS: FERROUS SULFATE 325 MG TABLET PO SCH ×2 (07:41→17:15)
[2019-03-21] MEDS: ACETAMINOPHEN 325 MG TABLET PO PRN (07:48)
[2019-03-21 12:30] VITALS: BP 155/79
== END 2019-03-21 21:25 | DRG 919 ==
LOC: ED 18:13 → EDIP 18:49 → 3N 19:20
PROVIDERS: ADMIT Internal Medicine; ATTEND Internal Medicine
PROC: 02HV33Z Insertion of Infusion Device into Superior Vena Cava, Percutaneous Approach (ICD-10-PCS; principal; 2019-03-16)
PROC: B548ZZA Ultrasonography of Superior Vena Cava, Guidance (ICD-10-PCS; 2019-03-16)
PROC: B5181ZA Fluoroscopy of Superior Vena Cava using Low Osmolar Contrast, Guidance (ICD-10-PCS; 2019-03-16)
DX: T81.31XA Disruption of external operation (surgical) wound, not elsewhere classified, initial encounter (principal); A41.9 Sepsis, unspecified organism; L03.311 Cellulitis of abdominal wall; K76.6 Portal hypertension; Y83.8 Other surgical procedures as the cause of abnormal reaction of the patient, or of later complication, without mention of misadventure at the time of the procedure; Y92.89 Other specified places as the place of occurrence of the external cause; B96.4 Proteus (mirabilis) (morganii) as the cause of diseases classified elsewhere; D50.9 Iron deficiency anemia, unspecified; E11.9 Type 2 diabetes mellitus without complications; I10 Essential (primary) hypertension; K74.60 Unspecified cirrhosis of liver; K76.0 Fatty (change of) liver, not elsewhere classified; L73.2 Hidradenitis suppurativa; M79.3 Panniculitis, unspecified; G47.33 Obstructive sleep apnea (adult) (pediatric); G89.29 Other chronic pain; M54.9 Dorsalgia, unspecified; Z96.653 Presence of artificial knee joint, bilateral; Z90.710 Acquired absence of both cervix and uterus; Z87.891 Personal history of nicotine dependence; Z80.0 Family history of malignant neoplasm of digestive organs; Z79.4 Long term (current) use of insulin; Z51.5 Encounter for palliative care
CPT/HCPCS: 36415; 36573; 71045; 74177; 80048; 80053; 80202; 81001; 82962; 83036; 83605; 84145; 85025; 85651; 86140; 87040; 87070; 87075; 87077; 87086; 87147; 87186; 87205; 87400; 93005; 99285; G0378; J1644; J2543; J3370; Q9967; C1751; J1815; J2060; J7030; J7040; J7050; Q0163

== ENCOUNTER → 2020-06-07 | Outpatient (CLI) | payer MEDICARE ==
[~2020-06-07] MED LIST changes: -ASCO500T6 PO; +ASCO500T9 PO; -GLIM4TAB4 PO; +GLIM4TAB8 PO; -OXYC5TAB3 PO; +OXYC5TAB98 PO
[2020-06-07 11:38] LABS: BASOPHILS % (AUTO) 1 % (0-1); EOSINOPHILS % (AUTO) 4 % (1-7); LYMPHOCYTES % (AUTO) 25 % (22-44); MEAN CORPUSCULAR HEMOGLOBIN 27.1 pg (27.0-34.8); MEAN CORPUSCULAR HGB CONC 32.6 g/dL (32.4-35.8); MONOCYTES % (AUTO) 10 % (2-9); NEUTROPHILS % (AUTO) 61 % (42-75); PLATELET COUNT 149 x10^3/uL (130-400); RED BLOOD COUNT 4.62 x10^6/uL (3.82-5.3); RED CELL DISTRIBUTION WIDTH 15.5 % (9.6-15.2)
[2020-06-07 11:41] LABS: MICROSCOPIC AUTO
[2020-06-07 11:45] LABS: MD NO
[2020-06-07 11:50] LABS: ALANINE AMINOTRANSFERASE 29 U/L (12-78); ALBUMIN 2.8 g/dL (3.4-5.0); CALCIUM 9.6 mg/dL (8.5-10.1); CHLORIDE 106 mmol/L (98-107)
[2020-06-07 11:51] LABS: INTERNATIONAL NORMALIZED RATIO 1.07 (0.93-1.1); PROTHROMBIN TIME 11.4 Seconds (9.6-11.5)
[2020-06-07 11:53] LABS: ALKALINE PHOSPHATASE 108 U/L (45-117); BILIRUBIN,TOTAL 0.5 mg/dL (0.2-1.0); CREATININE 1.08 mg/dL (0.55-1.02); TOTAL PROTEIN 8.1 g/dL (6.4-8.2)
[2020-06-07 12:17] LABS: ANION GAP 2 mmol/L (5-15)
== END | disposition home or self-care (01) ==
LOC: STAR 10:14
PROVIDERS: ATTEND Urology
DX: Z01.818 Encounter for other preprocedural examination (principal); N20.0 Calculus of kidney; Z20.822 Contact with and (suspected) exposure to COVID-19
CPT/HCPCS: 36415; 80053; 81001; 85025; 85610; 85730; 87077; 87086; 93005; U0003; 87186

== ENCOUNTER 2020-06-11 10:20 | Day surgery (SDC) | payer MEDICARE ==
[~2020-06-11] VITALS: Ht 160 cm; Wt 113.0 kg
[~2020-06-11 10:20] MED LIST changes: +ALEN70TA77 PO; +CALC600T60 PO; +CIPR500T87 PO; +DOXY100C15 PO; +ESCI20TA8 PO; +FURO20TA3 PO; +METO50TA82 PO; +MULT-449 PO; +POTA20TA6 PO
[2020-06-11 10:47] VITALS: BP 194/85
[2020-06-11] MEDS ORDERED: LACTATED RINGERS 1,000 ML IV SCH (11:00)
[2020-06-11] MEDS ORDERED: GENTAMICIN 80 MG/2 ML IVPB STA (11:44)
[2020-06-11] MEDS ORDERED: LABETALOL 5MG/ML, 20ML IV PRN (12:00)
[2020-06-11] MEDS ORDERED: OXYcodone 5 MG/5 ML ORAL.SOL UDC PO PRN (12:00)
[2020-06-11] MEDS ORDERED: METHOCARBAMOL 1,000 MG in DEXTROSE 5% 100 ML IV PRN (12:00)
[2020-06-11] MEDS ORDERED: PROMETHAZINE 25 MG/ML, 1ML IVPush PRN (12:00)
[2020-06-11] MEDS ORDERED: EPHEDRINE 50 MG/ML, 1ML IVPush PRN (12:00)
[2020-06-11] MEDS ORDERED: ACETAMINOPHEN 325 MG TABLET PO PRN (12:00)
[2020-06-11] MEDS ORDERED: FENTANYL PF 100 MCG/2ML IV PRN (12:00)
[2020-06-11] MEDS ORDERED: MEPERIDINE/PF 25MG/0.5ML IVPush PRN (12:00)
[2020-06-11] MEDS ORDERED: HYDROmorphone 1 MG/ML, 1ML INJ IVPush PRN (12:00)
[2020-06-11] MEDS ORDERED: ONDANSETRON 2MG/ML, 2ML IVPush PRN (12:00)
[2020-06-11] MEDS ORDERED: LORazepam 2 MG/ML, 1ML IVPush PRN (12:00)
[2020-06-11] MEDS ORDERED: GENTAMICIN 220 MG in SODIUM CHLORIDE 0.9% 100 ML IV ONE (12:00)
[2020-06-11] MEDS ORDERED: FENTANYL PF 250 MCG/5ML ONE (13:09)
[2020-06-11] MEDS ORDERED: ONDANSETRON 2MG/ML, 2ML ONE (13:24)
[2020-06-11] MEDS ORDERED: DEXAMETHASONE 4 MG/ML, 1ML ONE (13:24)
[2020-06-11] MEDS ORDERED: ESMOLOL 100 MG/10 ML ONE (13:24)
[2020-06-11] MEDS ORDERED: KETOROLAC 30 MG/1 ML ONE (13:24)
[2020-06-11] MEDS ORDERED: OMNIPAQUE 350 MG/ML, 50 ML BOTTLE ONE (13:36)
[2020-06-11] MEDS ORDERED: OMNIPAQUE 350 MG/ML, 50 ML BOTTLE IV ONE (14:15)
[2020-06-11] MEDS ORDERED: NEOSTIGMINE 1 MG/ML, 10ML ONE (14:20)
[2020-06-11] MEDS ORDERED: LIDOCAINE-MPF 2% ,5ML ONE (14:20)
[2020-06-11] MEDS ORDERED: GLYCOPYRROLATE 0.2MG/1ML, 5ML ONE (14:20)
[2020-06-11] MEDS ORDERED: PROPOFOL 10 MG/ML, 20ML ONE (14:20)
[2020-06-11] MEDS ORDERED: SUGAMMADEX 200 MG/2 ML IVPush ONE ×2 (14:24→14:25)
[2020-06-11] MEDS ORDERED: hydrALAzine 20 MG/ML, 1ML ONE (14:44)
[2020-06-11] MEDS: hydrALAzine 20 MG/ML, 1ML IV PRN ×2 (14:45→15:07)
== END 2020-06-11 17:50 | disposition home or self-care (01) ==
LOC: OUT 10:20
PROVIDERS: ATTEND Urology
DX: N20.1 Calculus of ureter (principal); N39.0 Urinary tract infection, site not specified; E11.9 Type 2 diabetes mellitus without complications; J44.9 Chronic obstructive pulmonary disease, unspecified; G47.33 Obstructive sleep apnea (adult) (pediatric); E66.9 Obesity, unspecified; Z68.41 Body mass index [BMI] 40.0-44.9, adult; Z79.84 Long term (current) use of oral hypoglycemic drugs; Z79.899 Other long term (current) drug therapy; Z96.0 Presence of urogenital implants
CPT/HCPCS: 52353; 82360; 88300; C1726; C1758; J0360; J1100; J1580; J1885; J2405; J2704; J2710; J3010; J7120; Q9967; 76000

== ENCOUNTER → 2020-11-01 | Outpatient (CLI) | payer MEDICARE ==
[~2020-11-01] MED LIST changes: +DOXY-246 PO; -DOXY100C15 PO
== END | disposition home or self-care (01) ==
LOC: CVU 15:17
PROVIDERS: ATTEND Internal Medicine Cardiovascular Disease
DX: I08.3 Combined rheumatic disorders of mitral, aortic and tricuspid valves (principal); I27.20 Pulmonary hypertension, unspecified; Z72.0 Tobacco use
CPT/HCPCS: 93306; 93356